=== PATIENT | male | born 1945 | race Caucasian/White ===

== ENCOUNTER 2016-11-20 14:46 | Emergency (ER) | payer MEDICARE, OTHER ==
--- NOTE | 2016-11-20 14:54 | ER Document Report ---
ED Respiratory Problem - General Chief Complaint: Respiratory Arrest Stated Complaint: NON REPSONSIVE Notes: The patient is a 71-year-old male, past medical history A. fib (on Pradaxa), COPD, hypertension, presents intubated by EMS after he was found to have increasing shortness of breath over the past day. When EMS arrived, his mental status worsened and his oxygenation was 40%. He was placed on a nonrebreather and that improved to 70%. The decision was made to RSI him because he could not tolerate BiPAP. Unable to obtain any additional history. came to ER and said that patient was seen at his primary care office in [facility] for a COPD exacerbation last week. He was given IV steroids, Abx and breathing treatments and felt much better. He used his albuterol inhaler earlier today because he felt increasing shortness of breath. He was difficult to arouse and that is why she called EMS. - Related Data Allergies/Adverse Reactions: No Known Allergies Allergy (Verified 11/20/16 15:13) Past Medical History - General Information source: Emergency Med Personnel - Social History Smoking Status: Unknown if Ever Smoked Family History: Other - Unknown Review of Systems - Review of Systems -: Yes ROS unobtainable due to patient's medical condition Physical Exam - Vital signs Vitals: Pulse Ox 94 11/20/16 15:06 - Notes Notes: PHYSICAL EXAMINATION: GENERAL: Intubated. HEAD: Atraumatic, normocephalic. EYES: Pupils equal round and reactive to light, extraocular movements intact, sclera anicteric, conjunctiva are normal. ENT: nares patent, oropharynx clear without exudates. Moist mucous membranes. NECK: Normal range of motion, supple without lymphadenopathy LUNGS: Artificial respirations. B/L breath sounds. LLL crackles. HEART: Irregular. ABDOMEN: Soft, nontender, normoactive bowel sounds. No guarding, no rebound. No masses appreciated. EXTREMITIES: Normal range of motion, 3+ B/L pitting edema. No cyanosis. NEUROLOGICAL: No spontaneous movements. SKIN: Warm, Dry, normal turgor, no rashes or lesions noted. Course - Re-evaluation Re-evalutation: 11/20/16 15:51: Patient with left lower infiltrate, hypoxia and respiratory acidosis. Broad-spectrum antibiotics started. No ICU beds at [facility]. Pt requires transfer to facility with ICU capability. Patient's primary care physician is at [facility] and she is requesting transfer to there. Spoke to [facility] Transfer center. Awaiting callback from [facility] [employer] [facility]. 11/20/16 16:[address] Grant ([facility]) and he has accepted patient to ICU. Awaiting bed assignment. - Vital Signs Vital signs: Temp Pulse Resp BP Pulse Ox 94 11/20/16 15:06 - Laboratory Result Diagrams: 11/20/16 14:50 11/20/16 14:50 Laboratory results interpreted by me: 11/20/16 11/20/16 11/20/16 14:50 14:50 14:50 Hgb 12.1 L MCH 25.7 L MCHC 30.8 L RDW 15.5 H Plt Count 118 L Seg Neutrophils % 80.9 H Lymphocytes % 7.9 L Absolute Lymphocytes 0.3 L PT 22.0 H APTT 66.6 H Carbonic Acid ABG pH ABG pCO2 ABG pO2 ABG HCO3 ABG Total CO2 ABG O2 Saturation Potassium 5.2 H Carbon Dioxide 33 H BUN 30 H Glucose 142 H Calcium 7.8 L Creatine Kinase 36 L NT-Pro-B Natriuret Pep Total Protein 5.3 L Albumin 3.1 L Lipase 12.3 L 11/20/16 11/20/16 14:50 15:15 Hgb MCH MCHC RDW Plt Count Seg Neutrophils % Lymphocytes % Absolute Lymphocytes PT APTT Carbonic Acid 1.85 H ABG pH 7.31 L ABG pCO2 61.6 H ABG pO2 57.2 L ABG HCO3 30.0 H ABG Total CO2 31.9 H ABG O2 Saturation 86.3 L Potassium Carbon Dioxide BUN Glucose Calcium Creatine Kinase NT-Pro-B Natriuret Pep 93798 H Total Protein Albumin Lipase - Diagnostic Test Radiology reviewed: Image reviewed, Reports reviewed - EKG Interpretation by [place] EKG shows normal: QRS Complexes Rate: Normal Rhythm: A.Fib Critical Care Note - Critical Care Note Total time excluding time spent on procedures (mins): 45 Discharge - Discharge Clinical Impression: Acute respiratory failure with hypoxia and hypercapnia Pneumonia Qualifiers: Pneumonia type: due to unspecified organism Laterality: left Lung location: lower lobe of lung Qualified Code(s): J18.1 - Lobar pneumonia, unspecified organism Condition: Critical Disposition: [facility]
[2016-11-20 15:22] LABS: ABSOLUTE LYMPHOCYTES (AUTO) 0.3 10^3/uL (0.5-4.7); ABSOLUTE MONOCYTES (AUTO) 0.4 10^3/uL (0.1-1.4); ABSOLUTE NEUT (AUTO) 3.3 10^3/uL (1.7-8.2); BASOPHILS % (AUTO) 0.2 % (0-2); EOSINOPHILS % (AUTO) 0.1 % (0-6); HEMATOCRIT 39.4 % (37.9-51.0); HEMOGLOBIN 12.1 g/dL (13.5-17.0); HGB HCT DIFFERENCE -3.1; LYMPHOCYTES % (AUTO) 7.9 % (13-45); MEAN CORPUSCULAR HEMOGLOBIN 25.7 pg (27.0-33.4); MEAN CORPUSCULAR HGB CONC 30.8 g/dL (32.0-36.0); MEAN CORPUSCULAR VOLUME 84 fl (80-97); MONOCYTES % (AUTO) 10.9 % (3-13); RED BLOOD COUNT 4.72 10^6/uL (4.35-5.55); RED CELL DISTRIBUTION WIDTH 15.5 % (11.5-14.0); SEGMENTED NEUTROPHILS % (AUTO) 80.9 % (42-78); WHITE BLOOD COUNT 4.1 10^3/uL (4.0-10.5)
[2016-11-20 15:30] LABS: PARTIAL THROMBOPLASTIN TIME 66.6 SEC (23.5-35.8)
[2016-11-20] MEDS ORDERED: VANCOMYCIN HCL INJ 1000 MG VIAL IV ONE (15:41)
[2016-11-20] MEDS ORDERED: PIPERACILLIN/TAZOBACTAM 3.375 GM VIAL IV ONE (15:41)
[2016-11-20 15:42] LABS: ARTERIAL BLOOD BASE EXCESS 2.3 mmol/L; ARTERIAL BLOOD O2 SATURATION 86.3 % (94-98)
[2016-11-20 15:44] LABS: ALANINE AMINOTRANSFERASE 25 U/L (21-72); ALBUMIN 3.1 g/dL (3.5-5.0); ALKALINE PHOSPHATASE 85 U/L (38-126); ANION GAP 7 (5-19); ASPARTATE AMINO TRANSFERASE 34 U/L (17-59); BILIRUBIN,TOTAL 1.2 mg/dL (0.2-1.3); BLOOD UREA NITROGEN 30 mg/dL (7-20); CALCIUM 7.8 mg/dL (8.4-10.2); CARBON DIOXIDE 33 mmol/L (22-30); CHLORIDE 99 mmol/L (98-107); CREATINE KINASE 36 U/L (55-170); CREATININE RESULT 1.08 mg/dL (0.52-1.25); GLUCOSE 142 mg/dL (75-110); LIPASE 12.3 U/L (23-300); POTASSIUM 5.2 mmol/L (3.6-5.0); TOTAL PROTEIN 5.3 g/dL (6.3-8.2)
[2016-11-20] MEDS ORDERED: FENTANYL CITRATE INJ/PF 100 MCG/2 ML AMPUL IV ONE (16:02)
[2016-11-20] MEDS ORDERED: FENTANYL CITRATE INJ/PF 100 MCG/2 ML AMPUL ONE (16:03)
[2016-11-20 16:04] LABS: TROPONIN I 0.166 ng/mL
[2016-11-20] MEDS ORDERED: PROPOFOL INJ 200 MG/20 ML VIAL IV ONE (17:21)
[2016-11-20] MEDS ORDERED: PROPOFOL 100 ML IV ONE (17:23)
[2016-11-20 17:32] VITALS: BP 116/82
--- NOTE | 2016-11-21 20:14 | EKG REPORT ---
SEVERITY:- ABNORMAL ECG - ATRIAL FIBRILLATION MULTIFORM VENTRICULAR PREMATURE COMPLEXES LEFT POSTERIOR FASCICULAR BLOCK LOW VOLTAGE IN FRONTAL LEADS BORDERLINE R WAVE PROGRESSION, ANTERIOR LEADS BORDERLINE T ABNORMALITIES, INFERIOR LEADS : Confirmed by: Jose Manriquez 21-Nov-2016 20:13:58
== END 2016-11-20 18:00 | disposition short-term general hospital (02) ==
LOC: ER 14:46
DX: J96.02 Acute respiratory failure with hypercapnia (principal); J96.01 Acute respiratory failure with hypoxia; J18.1 Lobar pneumonia, unspecified organism; I48.91 Unspecified atrial fibrillation; J44.9 Chronic obstructive pulmonary disease, unspecified; I10 Essential (primary) hypertension; Z79.02 Long term (current) use of antithrombotics/antiplatelets
CPT/HCPCS: 93005; 99291; 96365; 96367; 36415; 87040; 82803; 82550; 83690; 85025; 85610; 85730; 80053; 84484; 83605; 87804; 83880; 71010; 93010; 36600; J3010; J3370; J2543

== ENCOUNTER → 2018-01-04 | Outpatient (CLI) | payer OTHER ==
--- NOTE | 2018-01-04 10:41 | RADIOLOGY REPORT (SQ) ---
EXAM DESCRIPTION: SKULL 1-3 VIEWS COMPLETED DATE/TIME: 01/04/2018 8:37 am REASON FOR STUDY: foreign body in eyes yip and lateral N28.89 OTHER SPECIFIED DISORDERS OF KIDNE Y AND URETER COMPARISON: None. NUMBER OF VIEWS: Two views TECHNIQUE: Images of the paranasal sinuses acquired. LIMITATIONS: None. FINDINGS: ORBITS: No fracture. No orbital radiopaque foreign body. SINUSES: No mucosal thickening. No air fluid levels. FACIAL BONES: No fracture. OTHER: There is a 2 mm metallic foreign body in the left upper lip IMPRESSION: 2 mm foreign body in the left upper lip soft tissues TECHNICAL DOCUMENTATION: JOB ID: [id number] [employer]- All Rights Reserved Reading location - IP/workstation name: [email or web address]
== END ==
LOC: RAD 07:53
PROVIDERS: ATTEND Internal Medicine Cardiovascular Disease
DX: N28.89 Other specified disorders of kidney and ureter (principal)
CPT/HCPCS: 70250